=== PATIENT | female | born 1965 | race Caucasian/White ===

== ENCOUNTER 2024-11-16 19:19 | Emergency (ER) | payer MEDICAID ==
[~2024-11-16] VITALS: Ht 160 cm; Wt 70.3 kg
[2024-11-16 20:56] LABS: APPEARANCE,URINE CLEAR (CLEAR); BLOOD, URINE NEGATIVE Ery/uL (NEGATIVE); LEUKOCYTE ESTERASE ,URINE NEGATIVE (NEGATIVE); NITRITE, URINE NEGATIVE (NEGATIVE); UGLUCOSE NEGATIVE (NEGATIVE)
[2024-11-16 20:58] LABS: PLATELET COUNT (AUTO) 212 K/uL (150-450); RED BLOOD CELL COUNT(AUTO) 4.53 MIL/uL (4.0-5.2); RED CELL DISTRIBUTION WIDTH 13.7 % (11.5-15.0); WHITE BLOOD COUNT (AUTO) 7.6 K/uL (4.3-11.0)
[2024-11-16 21:04] LABS: CALCIUM, SERUM 9.2 mg/dL (8.5-10.1); CREATININE 0.6 mg/dL (0.6-1.3); SODIUM SERUM 143.0 mmol/L (136-145); UREA NITROGEN, BLOOD 19.0 mg/dL (7-18)
[2024-11-16 21:11] LABS: ASPARTATE AMINOTRANSFERASE 9.0 U/L (15-37); TOTAL PROTEIN, SERUM 6.9 g/dL (6.4-8.2)
[2024-11-16] MEDS ORDERED: ACETAMINOPHEN ES 500 MG TABLET ONE (21:40)
[2024-11-16] MEDS ORDERED: ONDANSETRON 4 MG TAB.RAPDIS ONE (21:40)
[2024-11-16] MEDS: ACETAMINOPHEN ES 500 MG TABLET PO ONE (21:47)
[2024-11-16] MEDS: ONDANSETRON 4 MG TAB.RAPDIS SL ONE (21:48)
[2024-11-16] MEDS ORDERED: POLY119P PO (21:54)
[2024-11-16] MEDS ORDERED: ONDA4TAB11 PO (21:54)
[2024-11-16 22:07] VITALS: BP 120/78; TEMP 98; O2SAT 98
== END 2024-11-16 22:07 | disposition home or self-care (01) ==
LOC: ER 19:45
DX: R10.30 Lower abdominal pain, unspecified (principal); R35.0 Frequency of micturition; K59.00 Constipation, unspecified; F17.200 Nicotine dependence, unspecified, uncomplicated; Z88.1 Allergy status to other antibiotic agents
CPT/HCPCS: 99283; 85025; 80048; 87086; 83690; 80076; 81003; 36415; Q0162